=== PATIENT | male | born 1995 | race Caucasian/White ===

== ENCOUNTER 2018-11-03 16:08 | Emergency (ER) | payer OTHER ==
--- NOTE | 2018-11-03 16:36 | EDM.PDOC ---
ED HPI GENERAL MEDICAL PROBLEM - General Chief Complaint: Skin Complaint Stated Complaint: CHEM SCHULTE ON SIDE OF HEAD Time Seen by Provider: 11/03/18 16:13 - History of Present Illness INITIAL COMMENTS - FREE TEXT/NARRATIVE: HISTORY AND PHYSICAL: History of present illness: The patient is a healthy 23-year-old male who works around numerous powdered chemicals and wears a full suit and headgear as well as a headset on his ears and presents with complaints of burning-like sensation reddened skin and some weeping and crusting of the skin around his ears bilaterally that started yesterday. He says he noticed a burning sensation where his headset sits on his ears yesterday after work and he rinsed the area thoroughly. Since that time the burning has increased and now he is noticing redness some weeping from the area and some crusting with this drainage. His ears internally are without pain and he has no other areas of his face or head of concern or with similar symptoms. He has no systemic complaints and no eye burning or irritation. There is no facial swelling. He has not noticed any drainage or involvement of the auricle or the outer ear. Review of systems: As per history of present illness and below otherwise all systems reviewed and negative. Past medical history: As per history of present illness and as reviewed below otherwise noncontributory. Surgical history: As per history of present illness and as reviewed below otherwise noncontributory. Social history: No reported history of drug or alcohol abuse. Family history: As per history of present illness and as reviewed below otherwise noncontributory. Physical exam: General: Well-developed well-nourished man who is nontoxic and vital signs are noted by me HEENT: Atraumatic, normocephalic, pupils reactive, negative for conjunctival pallor or scleral icterus, mucous membranes moist, throat clear, neck supple, nontender, trachea midline. There is no cervical adenopathy or nuchal rigidity and the TMs are normal bilaterally. Please see below skin exam for scalp exam. Lungs: Clear to auscultation, breath sounds equal bilaterally, chest nontender. Heart: S1S2, regular rate and rhythm no overt murmurs Abdomen: Soft, nondistended, nontender. NABS Pelvis: Deferred Genitourinary: Deferred. Rectal: Deferred. Extremities: Atraumatic, full range of motion that defects or deficits Neurovascular unremarkable. Neuro: Awake, alert, oriented. Cranial nerves II through XII unremarkable. Cerebellum unremarkable. Motor and sensory unremarkable throughout. Exam nonfocal. Skin: At the supra auricular areas of the scalp there is reddened skin which is ill-defined and is greater on the left side than on the right and there is some honey crusting seen on the left side and some weepage but no discrete open areas. Both sides have excoriated skin but again no lacerations vesicles or open wounds. There is no soft tissue swelling here and there is some mild tenderness. There is no hair he auricular adenopathy Diagnostics: [] Therapeutics: Bactroban Impression: Chemical exposure of scalp, secondary impetigo Definitive disposition and diagnosis as appropriate pending reevaluation and review of above. face Pain Score (Numeric/FACES): 4 - Related Data Allergies Allergy/AdvReac Type Severity Reaction Status Date / Time No Known Allergies Allergy Verified 11/03/18 16:16 Home Meds: Home Meds . [No Known Home Meds] 11/03/18 [History] Past Medical History - Past Surgical History HEENT Surgical History: Reports: Adenoidectomy, Tonsillectomy Other HEENT Surgeries/Procedures: wisdom teeth Social & Family History - Family History Family Medical History: Noncontributory - Tobacco Use Smoking Status *Q: Light Tobacco Smoker Years of Tobacco use: 1 Packs/Tins Daily: 0.1 - Recreational Drug Use Recreational Drug Use: No ED ROS GENERAL - Review of Systems Review Of Systems: ROS reveals no pertinent complaints other than HPI. ED EXAM, SKIN/RASH Exam: See Below (See dictation) Course - Vital Signs Last Recorded V/S: Last Vital Signs Temp 36.6 C 11/03/18 16:17 Pulse 72 11/03/18 16:17 Resp 18 11/03/18 16:17 BP 147/86 H 11/03/18 16:17 Pulse Ox 97 11/03/18 16:17 - Orders/Labs/Meds Orders: Active Orders 24 hr Category Date Time Status Mupirocin Oint [Bactroban Oint] Med 11/03/18 22:00 Ordered 0.5 gm TOP TID Departure - Departure Time of Disposition: 16:36 Disposition: Home, Self-Care 01 Condition: Good Clinical Impression: Chemical exposure, Impetigo - Discharge Information Referrals: PCP,Unknown [Primary Care Provider] - Additional Instructions: The following information is given to patients seen in the emergency department who are being discharged to home. This information is to outline your options for follow-up care. We provide all patients seen in our emergency department with a follow-up referral. The need for follow-up, as well as the timing and circumstances, are variable depending upon the specifics of your emergency department visit. If you don't have a primary care physician on staff, we will provide you with a referral. We always advise you to contact your personal physician following an emergency department visit to inform them of the circumstance of the visit and for follow-up with them and/or the need for any referrals to a consulting specialist. The emergency department will also refer you to a specialist when appropriate. This referral assures that you have the opportunity for followup care with a specialist. All of these measure are taken in an effort to provide you with optimal care, which includes your followup. Under all circumstances we always encourage you to contact your private physician who remains a resource for coordinating your care. When calling for followup care, please make the office aware that this follow-up is from your recent emergency room visit. If for any reason you are refused follow-up, please contact the [facility] emergency department at and ask to speak to the emergency department charge nurse. [facility] Primary care- Internal Medicine and Family [address] [address] Keep areas clean and dry with mild soap and water pat dry and apply the ointment , Bactroban, that you have been given here from the ED. Please do this 2-3 times a day for the next 7 days. Please schedule a follow-up appointment with your provider or one of hours for reevaluation further care and return to ER as needed and as discussed - My Orders Last 24 Hours: My Active Orders 11/03/18 22:00 Mupirocin Oint [Bactroban Oint] 0.5 gm TOP TID - Assessment/Plan Last 24 Hours: My Active Orders 11/03/18 22:00 Mupirocin Oint [Bactroban Oint] 0.5 gm TOP TID
[2018-11-03] MEDS ORDERED: Mupirocin Oint 22 GM Tube TOP SCH (22:00)
== END 2018-11-03 17:03 | disposition home or self-care (01) ==
LOC: MW.ED 16:08
DX: L01.00 Impetigo, unspecified (principal); F17.210 Nicotine dependence, cigarettes, uncomplicated; Z77.098 Contact with and (suspected) exposure to other hazardous, chiefly nonmedicinal, chemicals
CPT/HCPCS: 99282; 99283